=== PATIENT | male | born 1990 | race Caucasian/White ===

== ENCOUNTER 2017-06-20 15:19 | Emergency (ER) | payer SELFPAY ==
[2017-06-20] MEDS ORDERED: TORAdol 30 mg Injection ONE (15:40)
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
[2017-06-20] MEDS ORDERED: TORAdol 30 mg Injection IM ONE (15:46)
[2017-06-20 16:36] VITALS: BP 145/69; PULSE 60; O2SAT 97
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
== END 2017-06-20 16:36 | disposition home or self-care (01) ==
LOC: ED 15:19
DX: S63.501A Unspecified sprain of right wrist, initial encounter (principal); S60.221A Contusion of right hand, initial encounter; W22.8XXA Striking against or struck by other objects, initial encounter
CPT/HCPCS: 73130; 96372; 99283; 99284; J1885; L3908

== ENCOUNTER 2017-07-20 12:59 | Emergency (ER) | payer OTHER ==
[2017-07-20 13:21] VITALS: O2SAT 98
[2017-07-20] MEDS ORDERED: TORAdol 30 mg Injection IM ONE (13:42)
[2017-07-20] MEDS ORDERED: Norflex 60 MG/2 ML IM ONE (13:42)
[2017-07-20] MEDS ORDERED: Norflex 60 MG/2 ML ONE (13:44)
[2017-07-20] MEDS ORDERED: TORAdol 30 mg Injection ONE (13:44)
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
[2017-07-20 14:09] VITALS: BP 138/68; PULSE 84
== END 2017-07-20 14:09 | disposition home or self-care (01) ==
LOC: ED 12:59
DX: S43.402A Unspecified sprain of left shoulder joint, initial encounter (principal); M25.512 Pain in left shoulder; W18.39XA Other fall on same level, initial encounter
CPT/HCPCS: 96372; 99284; J1885; J2360

== ENCOUNTER 2017-12-16 22:32 | Emergency (ER) | payer SELFPAY ==
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
[2017-12-16 22:57] LABS: BASOPHIL % 0.2 % (0.0-0.4); Basophil (Absolute #) 0.02 (0-0.4); Eosinophil % 1.4 % (0.00-5.0); Eosinophil (Absolute #) 0.12 (0-0.5); Granulocyte Absolute (ANC) 3.48 (1.4-6.9); Granulocytes % 40.9 % (36.0-66.0); Hematocrit 38.8 % (42-50); Hemoglobin 13.9 gm/dl (12.5-18.0); Lymphocyte (Absolute #) 4.05 (1.0-4.6); Lymphocytes % 47.6 % (24.0-44.0); Mean Cell Volume 82.2 fl (78-100); Mean Corpuscular Hemoglobin 29.4 pg (26-32); Mean Corpuscular Hgb Concent. 35.8 g/dl (32-36); Mean Platelet Volume 9.3 fl (6-9.5); Monocyte (Absolute #) 0.84 (0.0-1.3); Monocytes % 9.9 % (0.0-12.0); Platelet Count 277 K/mm3 (150-450); Red Blood Count 4.72 M/mm3 (4.1-5.6); Red Cell Distribution Width 13.3 % (11.5-14.0); White Blood Count 8.5 K/mm3 (4.0-10.5)
[2017-12-16] MEDS ORDERED: BABY ASPIRIN 81 MG CHEW PO ONE (22:58)
[2017-12-16] MEDS ORDERED: Nitrostat 0.4 MG (ED) SL ONE ×2 (22:58→23:18)
[2017-12-16 23:14] LABS: ALBUMIN 4.9 g/dl (3.5-5.0); ALKALINE PHOSPHATASE 104 U/L (38-126); AMYLASE 56 U/L (30-110); ANION GAP 21.2 MEQ/L (5-15); BLOOD UREA NITROGEN 20 mg/dl (9-20); CHLORIDE 102 mEq/L (98-107); Calcium 9.9 mg/dL (8.4-10.2); Carbon Dioxide 22 mmol/L (22-30); Creatinine 1 0.78 mg/dl (0.66-1.25); Glucose 101 mg/dL (74-106); LIPASE 128 U/L (23-300); Potassium 3.9 mmol/L (3.5-5.1); SGOT/AST 37 U/L (17-59); SGPT/ALT 76 U/L (0-50); SODIUM 141 mmol/L (137-145); Total Protein 7.8 mg/dl (6.3-8.2)
[2017-12-16] MEDS ORDERED: BABY ASPIRIN 81 MG CHEW ONE (23:18)
[2017-12-16 23:56] LABS: Amphetamine,Urine POSITIVE (NEGATIVE); Barbiturate,Urine NEGATIVE (NEGATIVE); Benzodiazepine,Urine NEGATIVE (NEGATIVE); Cocaine,Urine NEGATIVE (NEGATIVE); Methadone,Urine NEGATIVE (NEGATIVE); Opiate,Urine POSITIVE (NEGATIVE); PCP,Urine NEGATIVE (NEGATIVE); THC,Urine NEGATIVE (NEGATIVE)
[2017-12-16 23:59] LABS: Appearance CLEAR (CLEAR); Bilirubin NEGATIVE (NEGATIVE); Blood NEGATIVE Ery/ul (0-5); Glucose NEGATIVE (NEGATIVE); Ketones NEGATIVE (NEGATIVE); Leukocyte Esterase NEGATIVE (NEGATIVE); Nitrite NEGATIVE (NEGATIVE); Protein,Urine Dip NEGATIVE (Negative); Urobilinogen NORMAL mg/dL (0-1)
[2017-12-17 00:49] VITALS: BP 137/97; PULSE 88; O2SAT 97
--- NOTE | 2017-12-17 09:10 | XRAY ---
Indication: Chest pain. Elevated blood pressure. Comparison: February 08, 2015. Portable chest again demonstrates normal heart, lungs, and bony thorax with incidental scattered calcified granulomas.
== END 2017-12-17 00:35 | disposition home or self-care (01) ==
LOC: ED 22:32
DX: R07.89 Other chest pain (principal); F15.19 Other stimulant abuse with unspecified stimulant-induced disorder; R19.7 Diarrhea, unspecified; M54.9 Dorsalgia, unspecified; R51 Headache; R07.0 Pain in throat; R61 Generalized hyperhidrosis
CPT/HCPCS: 36415; 71045; 80053; 80307; 81002; 82150; 83690; 83735; 84484; 85025; 93005; 99284; A9270-GY

== ENCOUNTER 2018-11-15 23:45 | Emergency (ER) | payer MEDICAID, OTHER ==
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
[2018-11-16] MEDS ORDERED: NORCO 5/325 MG PO ONE (00:52)
[2018-11-16] MEDS ORDERED: NORCO 5/325 MG ONE (00:59)
[2018-11-16 01:24] VITALS: BP 144/77; PULSE 82; O2SAT 100
--- NOTE | 2018-11-16 09:05 | XRAY ---
Indication: Pain following fall. Comparison: None 3 views of the right shoulder demonstrates right lung calcified granulomas. No other bony, articular, or soft tissue abnormalities.
== END 2018-11-16 01:35 | disposition home or self-care (01) ==
LOC: ED 23:45
DX: M25.511 Pain in right shoulder (principal); I10 Essential (primary) hypertension; K21.9 Gastro-esophageal reflux disease without esophagitis; M19.90 Unspecified osteoarthritis, unspecified site; F41.8 Other specified anxiety disorders
CPT/HCPCS: 73030; 99283; A9270-GY

== ENCOUNTER 2018-11-20 07:10 | Emergency (ER) | payer MEDICAID ==
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
--- NOTE | 2018-11-20 09:25 | XRAY ---
Indication: Pain following injury/fall 5 days ago. Comparison: June 20, 2017. 3 views of the right hand again demonstrates old 5th metacarpal fracture and tiny 4th proximal/middle phalanx bone islands. No new/acute findings.
[2018-11-20] MEDS ORDERED: TORAdol 30 mg Injection IM ONE (09:49)
[2018-11-20] MEDS ORDERED: TORAdol 30 mg Injection ONE (09:57)
[2018-11-20 10:09] VITALS: BP 125/87; PULSE 93; O2SAT 99
== END 2018-11-20 10:09 | disposition home or self-care (01) ==
LOC: ED 07:10
DX: M79.641 Pain in right hand (principal); M25.511 Pain in right shoulder; W11.XXXS Fall on and from ladder, sequela; K21.9 Gastro-esophageal reflux disease without esophagitis; M19.90 Unspecified osteoarthritis, unspecified site; F41.8 Other specified anxiety disorders; I10 Essential (primary) hypertension
CPT/HCPCS: 73130; 96372; 99284; J1885

== ENCOUNTER 2019-05-10 14:50 | Emergency (ER) | payer MEDICAID ==
[2019-05-10 15:59] VITALS: O2SAT 98
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
[2019-05-10 16:47] VITALS: BP 130/76; PULSE 86
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
== END 2019-05-10 17:10 | disposition home or self-care (01) ==
LOC: ED 14:50
DX: S60.512A Abrasion of left hand, initial encounter (principal); S60.511A Abrasion of right hand, initial encounter; W22.01XA Walked into wall, initial encounter
CPT/HCPCS: 73130; 99283

== ENCOUNTER 2019-06-24 04:30 | Observation (INO) | payer MEDICAID ==
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
[2019-06-24 05:06] LABS: BASOPHIL % 0.4 % (0.0-0.4); Basophil (Absolute #) 0.03 (0-0.4); Eosinophil % 5.8 % (0.00-5.0); Eosinophil (Absolute #) 0.47 (0-0.5); Granulocyte Absolute (ANC) 4.83 (1.4-6.9); Granulocytes % 59.2 % (36.0-66.0); Hematocrit 42.6 % (42-50); Hemoglobin 15.2 gm/dl (12.5-18.0); Lymphocyte (Absolute #) 2.05 (1.0-4.6); Lymphocytes % 25.2 % (24.0-44.0); Mean Cell Volume 84.4 fl (78-100); Mean Corpuscular Hemoglobin 30.1 pg (26-32); Mean Corpuscular Hgb Concent. 35.7 g/dl (32-36); Monocyte (Absolute #) 0.77 (0.0-1.3); Monocytes % 9.4 % (0.0-12.0); Platelet Count 225 K/mm3 (150-450); Red Blood Count 5.05 M/mm3 (4.1-5.6); Red Cell Distribution Width 13.4 % (11.5-14.0); White Blood Count 8.2 K/mm3 (4.0-10.5)
[2019-06-24 05:12] LABS: Appearance CLEAR (CLEAR); Bilirubin NEGATIVE (NEGATIVE); Blood SMALL Ery/ul (0-5); Glucose NEGATIVE (NEGATIVE); Ketones NEGATIVE (NEGATIVE); Leukocyte Esterase NEGATIVE (NEGATIVE); Nitrite NEGATIVE (NEGATIVE); Protein,Urine Dip NEGATIVE (Negative); Specific Gravity 1.004 (1.005-1.025); Urobilinogen NEGATIVE mg/dL (0-1)
[2019-06-24] MEDS ORDERED: Ativan 0.5 MG PO ONE (05:12)
[2019-06-24] MEDS ORDERED: Ativan 1 MG ONE (05:15)
[2019-06-24 05:21] LABS: ACETAMINOPHEN < 10 ug/ml (10-30); ALBUMIN 4.6 g/dL (3.5-5.0); ALKALINE PHOSPHATASE 81 U/L (38-126); BLOOD UREA NITROGEN 13 mg/dL (9-20); CHLORIDE 104 mmol/L (98-107); Calcium 8.9 mg/dL (8.4-10.2); Carbon Dioxide 23 mmol/L (22-30); Creatinine 1 0.61 mg/dL (0.66-1.25); ETHYL ALCOHOL 215 mg/dL (0-10); Glucose 112 mg/dL (74-106); Potassium 3.4 mmol/L (3.5-5.1); SALICYLATE < 1.0 mg/dL (2-20); SGOT/AST 28 U/L (17-59); SGPT/ALT 25 U/L (0-50); SODIUM 143 mmol/L (137-145); Total Protein 7.4 g/dL (6.3-8.2)
[2019-06-24 05:27] LABS: Barbiturate,Urine NEGATIVE (NEGATIVE); Benzodiazepine,Urine POSITIVE (NEGATIVE); Cocaine,Urine NEGATIVE (NEGATIVE); Methadone,Urine NEGATIVE (NEGATIVE); Opiate,Urine NEGATIVE (NEGATIVE); PCP,Urine NEGATIVE (NEGATIVE); THC,Urine NEGATIVE (NEGATIVE)
[2019-06-24 05:59] LABS: Amphetamine,Urine POSITIVE (NEGATIVE)
[2019-06-24] MEDS ORDERED: Klor Con 10 MEQ PO ONE ×2 (06:38→06:44)
[2019-06-24] MEDS ORDERED: Sodium Chloride 0.9% 1000 ML 1,000 ML ONE (07:12)
[2019-06-24] MEDS ORDERED: Ativan 2 MG/1 ML VIAL ONE (07:16)
[2019-06-24] MEDS ORDERED: Sodium Chloride 0.9% 1000 ML 1,000 ML IV STA (07:19)
[2019-06-24] MEDS ORDERED: Ativan 2 MG/1 ML VIAL IV ONE (07:20)
[2019-06-24] MEDS ORDERED: Sodium Chloride 0.9% W/ 20 mEq KCl/LITER 1,000 ML IV SCH (07:53)
[2019-06-24] MEDS ORDERED: Ativan 2 MG/1 ML VIAL IV PRN (07:53)
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
[2019-06-24] MEDS: Zyprexa Zydis 5 MG PO PRN ×2 (08:49→09:20)
[2019-06-24] MEDS ORDERED: Nicoderm CQ 21 MG TOP SCH (09:00)
[2019-06-24 19:37] VITALS: BP 117/62; PULSE 56; O2SAT 98
--- NOTE | 2019-06-25 17:09 | PCM.DS ---
Discharge Summary Date of Admission: 06/24/19 07:47 Date of Discharge: 06/24/2019 Admitting Physician: Ruddy Consults: Consults on Case 06/24/19 07:53 Consult Tele-Health [Tele-Health Consult] ROUTINE Primary Care Provider: JM BELCHER Allergies Allergies No Known Drug Allergies Allergy (Verified 06/24/19 04:45) Hospital Summary - Hospital Course Hospital Course: Pt. admitted in shape hand with acute etoh intoxication, and reported suicidal ideation, upon admission the patient was starting to deny continued suicidal thoughts. Pt. had bal rechecked later in the morning and found to be at a level he could be evaluated by [facility] for help in deciding if the patient needed inpatient therapy or a good candidate for outpatient follow-up. - Vitals & Intake/Output Vital Signs: Vital Signs Temperature 97.3 F 06/24/19 19:36 Pulse Rate 56 L 06/24/19 19:36 Respiratory Rate 16 06/24/19 19:36 Blood Pressure 117/62 06/24/19 19:36 O2 Sat by Pulse Oximetry 98 06/24/19 19:36 Intake & Output: Intake & Output 06/23/19 06/24/19 06/25/19 06/26/19 11:59 11:59 11:59 11:59 Intake Total 360 1860 Balance 360 1860 Weight 73 kg - Lab Result Diagrams: 06/24/19 05:05 06/24/19 05:05 Discharge Exam General Appearance: no apparent distress, alert Neurologic Exam: alert, oriented x 3, cooperative, normal mood/affect, nml cerebellar function, sensation nml, No motor deficits Eye Exam: PERRL, EOMI, eyes nml inspection Ears, Nose, Throat Exam: normal ENT inspection, pharynx normal, moist mucous membranes Neck Exam: normal inspection, non-tender, supple, full range of motion Respiratory Exam: normal breath sounds, lungs clear, No respiratory distress Cardiovascular Exam: regular rate/rhythm, normal heart sounds Gastrointestinal/Abdomen Exam: soft, No tenderness, No mass Skin Exam: normal color, warm, dry Lymphatic Exam: No adenopathy Final Diagnosis/Problem List - Final Discharge Diagnosis/Problem (1) Acute alcoholic intoxication without complication Status: Acute Code(s): F10.920 - ALCOHOL USE, UNSPECIFIED WITH INTOXICATION, UNCOMPLICATED (2) Major depression, recurrent Status: Acute Code(s): F33.9 - MAJOR DEPRESSIVE DISORDER, RECURRENT, UNSPECIFIED (3) Suicidal ideation Status: Acute Code(s): R45.851 - SUICIDAL IDEATIONS - Discharge Discharge Date: 06/24/19 Disposition: Home, Self-Care Condition: Stable Prescriptions: Continue Alprazolam [Xanax] 0.5 mg PO BIDPRN PRN PRN Reason: Anxiety Venlafaxine HCl [Effexor] 75 mg PO HS Instructions: Depression, Adult (DC), Alcohol Abuse and Alcoholism (DC) Additional Instructions: FOLLOW-UP WITH [facility] AND DRUG/ ALCOHOL COUNSELING. [phone] Follow up with: JM BELCHER [Primary Care Provider] - 1 Week (CALL FOR APPOINTMENT) Forms: Discharge Instructions
== END 2019-06-24 21:10 | disposition home or self-care (01) ==
LOC: ED 04:30 → MED SURG 07:47
PROVIDERS: ADMIT Family Medicine; ATTEND Family Medicine
DX: F10.929 Alcohol use, unspecified with intoxication, unspecified (principal); F33.9 Major depressive disorder, recurrent, unspecified; R45.851 Suicidal ideations
CPT/HCPCS: 36415; 80053; 80307; 81001; 84484; 85025; 90791; 93005; 93041; 96360; 96374; 99285; G0378; G0481; Q3014; J2060; A9270-GY; G0480

== ENCOUNTER 2019-07-20 17:49 | Emergency (ER) | payer MEDICAID ==
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
== END 2019-07-20 18:15 | disposition home or self-care (01) ==
LOC: ED 17:49
DX: F19.10 Other psychoactive substance abuse, uncomplicated (principal); F41.9 Anxiety disorder, unspecified; Z02.89 Encounter for other administrative examinations; Z13.9 Encounter for screening, unspecified; Z86.14 Personal history of Methicillin resistant Staphylococcus aureus infection
CPT/HCPCS: 99283

== ENCOUNTER 2020-06-18 21:07 | Emergency (ER) | payer MEDICAID, OTHER ==
[2020-06-18 21:13] VITALS: O2SAT 100
[2020-06-18] MEDS ORDERED: OXYCODONE-ACETAMINOPHEN 10-325 PO STA (21:28)
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
[2020-06-18] MEDS ORDERED: OXYCODONE-ACETAMINOPHEN 10-325 ONE (21:39)
[2020-06-18] MEDS ORDERED: PERCOCET TABLET 5/325MG ONE (21:49)
[2020-06-18] MEDS ORDERED: PERCOCET TABLET 5/325MG PO STA (21:50)
[2020-06-18 22:10] VITALS: BP 122/80; PULSE 97
--- NOTE | 2020-06-19 08:35 | XRAY ---
Indication: Pain and swelling following injury 2 days ago. Comparison: None 3 view left ankle demonstrates tiny cuboid accessory ossicle. No bony, articular, or soft tissue abnormalities.
== END 2020-06-18 22:06 | disposition home or self-care (01) ==
LOC: ED 21:07
DX: S99.912A Unspecified injury of left ankle, initial encounter (principal); W22.8XXA Striking against or struck by other objects, initial encounter
CPT/HCPCS: 73610; 99283; A9270-GY